=== PATIENT | male | born 1950 | race Caucasian/White ===

== ENCOUNTER 2017-07-26 16:33 | Emergency (ER) | payer MEDICARE ==
[2017-07-26] MEDS ORDERED: Ketorolac 60 MG/2 ML SDV IM ONE (17:03)
--- NOTE | 2017-07-26 17:09 | EDM.PDOC ---
ED HPI GENERAL MEDICAL PROBLEM - General Chief Complaint: Lower Extremity Injury/Pain Stated Complaint: PT HURT RT ANKLE Time Seen by Provider: 07/26/17 16:50 - History of Present Illness INITIAL COMMENTS - FREE TEXT/NARRATIVE: HISTORY AND PHYSICAL: History of present illness: The patient is a 66-year-old male who presents with complaints of right ankle pain after he rolled it while walking up a hill during [employer] hunting today. He says the injury occurred about 11 AM and he did not fall to the ground pass out or black out and has no head neck or back pain. The patient only complains of pain and swelling at the right ankle and has no neurosensory changes in the foot. He denies any distal foot pain or any proximal tib-fib knee thigh or hip pain. Prior to these events patient was in his usual state of good health with no systemic complaints Review of systems: As per history of present illness and below otherwise all systems reviewed and negative. Past medical history: As per history of present illness and as reviewed below otherwise noncontributory. Surgical history: As per history of present illness and as reviewed below otherwise noncontributory. Social history: No reported history of drug or alcohol abuse. Family history: As per history of present illness and as reviewed below otherwise noncontributory. Physical exam: Gen.: Well-developed well-nourished man who is nontoxic and speaking clearly and easily in the ED. Vital signs are noted by me HEENT: Atraumatic, normocephalic, negative for conjunctival pallor or scleral icterus, mucous membranes moist, throat clear, neck supple, nontender, trachea midline. Lungs: Clear to auscultation, breath sounds equal bilaterally, chest nontender. Heart: S1S2, regular Abdomen: Soft, nondistended, nontender. Negative for masses or hepatosplenomegaly. Negative for costovertebral tenderness. Pelvis: Stable nontender. Genitourinary: Deferred. Rectal: Deferred. Extremities: Atraumatic, negative for cords or calf pain. Neurovascular unremarkable. Neuro: Awake, alert, oriented. Cranial nerves II through XII unremarkable. Cerebellum unremarkable. Motor and sensory unremarkable throughout. Exam nonfocal. Diagnostics: Right ankle x-ray Therapeutics: Toradol crutches, short-leg post mold Patient is aware of the fracture and need for ortho follow-up. He states that he is driving back home to [place] and will follow-up with an orthopedic surgeon there. I will get a disc of his x-rays that he can take with him. I will still give him referrals to our clinic. He's advised strictly not to ambulate on the post mold and already prescription for pain meds that he can fill when he gets home. He plans on driving tonight so I will not give anything strong. The ER. He is accepting of this plan. Impression: Distal fibula fracture Definitive disposition and diagnosis as appropriate pending reevaluation and review of above. right ankle Pain Score (Numeric/FACES): 9 - Related Data Allergies Allergy/AdvReac Type Severity Reaction Status Date / Time acetaminophen [From Percocet] Allergy Shortness Verified 07/26/17 16:55 of Breath oxycodone [From Percocet] Allergy Shortness Verified 07/26/17 16:55 of Breath Home Meds: Home Meds Atenolol 25 mg PO DAILY 07/26/17 [History] Simvastatin [Zocor] 1 tab PO DAILY 07/26/17 [History] Review of Systems - Review of Systems Review Of Systems: ROS reveals no pertinent complaints other than HPI. ED EXAM, GENERAL - Physical Exam Exam: See Below (See dictation) Course - Vital Signs Last Recorded V/S: Last Vital Signs Temp 37.3 C 07/26/17 16:57 Pulse 69 07/26/17 16:57 Resp 18 07/26/17 16:57 BP 136/105 H 07/26/17 16:57 Pulse Ox 98 07/26/17 16:57 - Orders/Labs/Meds Orders: Active Orders 24 hr Category Date Time Status Ankle Min 3V Rt [CR] Stat Exams 07/26/17 17:03 Taken DME for Discharge [COMM] Stat Oth 07/26/17 18:07 Ordered Meds: Medications Discontinued Medications Generic Name Dose Route Start Last Admin Trade Name Freq PRN Reason Stop Dose Admin Ketorolac Tromethamine 60 mg 07/26/17 17:03 07/26/17 17:12 Toradol IM 07/26/17 17:04 60 mg ONETIME ONE Administration Departure - Departure Time of Disposition: 18:09 Disposition: Home, Self-Care 01 Condition: Good Clinical Impression: Fracture of distal end of fibula Qualifiers: Encounter type: initial encounter Fracture type: closed Fracture morphology: unspecified fracture morphology Laterality: right Qualified Code(s): S82.831A - Other fracture of upper and lower end of right fibula, initial encounter for closed fracture - Discharge Information Referrals: PCP,None [Primary Care Provider] - Forms: ED Department Discharge Additional Instructions: The following information is given to patients seen in the emergency department who are being discharged to home. This information is to outline your options for follow-up care. We provide all patients seen in our emergency department with a follow-up referral. The need for follow-up, as well as the timing and circumstances, are variable depending upon the specifics of your emergency department visit. If you don't have a primary care physician on staff, we will provide you with a referral. We always advise you to contact your personal physician following an emergency department visit to inform them of the circumstance of the visit and for follow-up with them and/or the need for any referrals to a consulting specialist. The emergency department will also refer you to a specialist when appropriate. This referral assures that you have the opportunity for followup care with a specialist. All of these measure are taken in an effort to provide you with optimal care, which includes your followup. Under all circumstances we always encourage you to contact your private physician who remains a resource for coordinating your care. When calling for followup care, please make the office aware that this follow-up is from your recent emergency room visit. If for any reason you are refused follow-up, please contact the [facility] emergency department at and ask to speak to the emergency department charge nurse. [facility]--Orthopedic clinic Professional [address] [address] Leave splint on until you're seen by the orthopedic surgeon either here at our clinic or at home in [place]. Please call him Friday and get follow-up this week as we discussed. Ice and elevate. Use [id number] ibuprofen or Tylenol for pain and at the stronger medications as needed. Do not weight or walk on this leg. Use crutches at all time. His return to ER as needed and as discussed. - My Orders Last 24 Hours: My Active Orders 07/26/17 17:03 Ankle Min 3V Rt [CR] Stat 07/26/17 18:07 DME for Discharge [COMM] Stat - Assessment/Plan Last 24 Hours: My Active Orders 07/26/17 17:03 Ankle Min 3V Rt [CR] Stat 07/26/17 18:07 DME for Discharge [COMM] Stat
[2017-07-26 18:29] VITALS: BP 143/75
--- NOTE | 2017-07-28 10:49 | CR ---
EXAM DATE: 07/26/17 PATIENT'S AGE: 66 Patient: MAZIN RÍOS Facility: [place], [place] Site . Site : 1950 Study: XRay Extremity Right ANKLE [id number] 5:49:01 PM Ordering Physician: Zo Dominguez Final Report: INDICATION: Pain. Technique: Three views of the right ankle. Findings: Nondisplaced comminuted fracture of the distal fibular diaphysis. Soft tissue swelling at the fracture site. The mortise is uniform. Accessory ossicles adjacent to the medial malleolus. Plantar calcaneal spur. Impression: Nondisplaced comminuted fracture of the distal right fibula with soft tissue swelling. Dictated by Selwyn Nugent MD @ Jul 26 2017 5:50PM (Electronic Signature) Report Signed by Proxy. [facility]
== END 2017-07-26 19:00 | disposition home or self-care (01) ==
LOC: MW.ED 16:33
DX: S82.831A Other fracture of upper and lower end of right fibula, initial encounter for closed fracture (principal); Z88.6 Allergy status to analgesic agent; Z88.5 Allergy status to narcotic agent; Z79.899 Other long term (current) drug therapy; W18.40XA Slipping, tripping and stumbling without falling, unspecified, initial encounter
CPT/HCPCS: 73610; 96372; 99283; J1885; 29515